=== PATIENT | male | born 1975 | race Caucasian/White ===

== ENCOUNTER 2020-11-27 13:02 | Inpatient (IN) | payer BC ==
[~2020-11-27] VITALS: Ht 177.8 cm; Wt 98.1 kg
[~2020-11-27 13:02] MED LIST: ADENOSINE 6 MG/2 ML ONE
[2020-11-27] MEDS ORDERED: TICAGRELOR 90 MG TABLET ONE ×3 (13:07→14:06)
[2020-11-27] MEDS ORDERED: VERAPAMIL 2.5 MG/ML, 2ML ONE (13:07)
[2020-11-27] MEDS ORDERED: LIDOCAINE 1%, 20ML ONE (13:07)
[2020-11-27] MEDS ORDERED: MIDAZOLAM 1 MG/ML, 5ML ONE (13:07)
[2020-11-27] MEDS ORDERED: FENTANYL PF 100 MCG/2ML ONE (13:07)
[2020-11-27] MEDS ORDERED: ASPIRIN 325 MG TABLET PO STA (13:11)
[2020-11-27 13:18] LABS: MEAN CORPUSCULAR HEMOGLOBIN 32.6 pg (27.5-34.5); MEAN CORPUSCULAR HGB CONC 34.6 g/dL (33.2-36.2); MEAN PLATELET VOLUME 9.6 fL (7.4-10.4); PLATELET COUNT 261 x10^3/uL (130-400); RED BLOOD COUNT 5.92 x10^6/uL (4.38-5.82); RED CELL DISTRIBUTION WIDTH 13.4 % (9.4-14.8)
--- NOTE | 2020-11-27 13:28 | NUR ---
PT FLOWN IN FROM [place]. CODE CARDIAC. PT REPORTS HAVING CRUSHING CP AT AROUND 1045 TODAY AND WENT TO ER. WAS FOUND TO BE HAVING A STEMI. 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 PT WAS ALSO ON A NITRO DRIP AT 5MCG/MIN UPON ARRIVAL. PT IMMEDIATLEY TAKEN TO PICTURE PAINTER UPON ARRIVAL.
[2020-11-27] MEDS ORDERED: NITROGLYCERIN 0.4 MG BOTTLE (25 TABS) SL PRN (13:30)
[2020-11-27] MEDS: LISINOPRIL 5 MG TABLET PO SCH ×2 (13:30→20:56)
[2020-11-27] MEDS ORDERED: ALUMINUM/MAG/SIMETHICONE 30 ML UDC PO PRN (13:30)
[2020-11-27] MEDS ORDERED: NITROGLYCERIN 0.4 MG/SPRAY SL PRN (13:30)
[2020-11-27 13:32] LABS: INTERNATIONAL NORMALIZED RATIO 1.05 (0.93-1.1); PROTHROMBIN TIME 11.2 Seconds (9.6-11.5)
[2020-11-27] MEDS ORDERED: TIROFIBAN HCL MONOHYDRATE 15 ML ONE (13:41)
[2020-11-27 13:50] LABS: PARTIAL THROMBOPLASTIN TIME < 23 Seconds (25-31)
[2020-11-27] MEDS ORDERED: POTASSIUM CHLORIDE 20 MEQ TAB.ER.PRT PO ONE (14:00)
[2020-11-27 14:02] LABS: CHOL/HDL RATIO 4.3; LDL/HDL RATIO 2.6 (0.5-3.0)
[2020-11-27] MEDS ORDERED: BIVALIRUDIN 250 MG ONE (14:14)
[2020-11-27 14:26] LABS: <PLATELET ESTIMATE> ADEQUATE; <PLT MORPHOLOGY> NORMAL PLT MORPH; <RBC MORPHOLOGY> NORMAL; BAND#(MANUAL) 2.43 x10^3/uL; BANDS%(MANUAL) 10 % (0-7); EOS#(MANUAL) 0.24 x10^3/uL (0.0-0.4); EOS% (MANUAL) 1 % (1-7); LYMPH#(MANUAL) 2.43 x10^3/uL (1-3.4); LYMPHS% (MANUAL) 10 % (22-44); MONOS#(MANUAL) 0.73 x10^3/uL (0.3-2.7); MONOS% (MANUAL) 3 % (2-9); SEG#(MANUAL) 18.47 x10^3/uL (1.8-6.8); SEGS% (MANUAL) 76 % (42-75)
[2020-11-27] MEDS: SODIUM CHLORIDE 0.9% 1,000 ML IV SCH ×2 (14:30→22:34)
[2020-11-27] MEDS ORDERED: BIVALIRUDIN 250 MG in SODIUM CHLORIDE 0.9% 50 ML IV SCH (14:30)
[2020-11-27] MEDS ORDERED: AMIODARONE 150 MG in DEXTROSE 5% 100 ML IV ONE ×2 (15:00→15:30)
[2020-11-27] MEDS ORDERED: FILTER 0.22 MICRON FOR AMIODARONE IV PRN (15:30)
[2020-11-27] MEDS: AMIODARONE 450 MG in DEXTROSE 5% 241 ML IV PRN (15:58)
[2020-11-27] MEDS: ONDANSETRON 2MG/ML, 2ML IVPush PRN (15:59)
[2020-11-27 16:01] LABS: CHOL/HDL RATIO 4.6; LDL/HDL RATIO 2.8 (0.5-3.0)
[2020-11-27] MEDS ORDERED: FUROSEMIDE 20 MG/2 ML IV ONE (17:00)
[2020-11-27] MEDS ORDERED: HEPARIN PROTOCOL IIB/IIIA POST-LYTIC MC PRN (17:00)
[2020-11-27] MEDS ORDERED: INSTRUCTION SEE COMMENTS XX ONE (17:10)
[2020-11-27] MEDS ORDERED: HEPARIN 25,000 UNITS/250ML PMX 250 ML IV PRN (17:30)
[2020-11-27] MEDS ORDERED: HEPARIN 5,000 UNITS/ML, 1ML IV PRN (17:30)
[2020-11-27] MEDS: CARVEDILOL 3.125 MG TABLET PO SCH (17:33)
[2020-11-27 20:10] LABS: TROPONIN I > 200.000 ng/mL (0.000-0.045)
[2020-11-27] MEDS: TICAGRELOR 90 MG TABLET PO SCH (20:56)
[2020-11-27] MEDS: ATORVASTATIN 80 MG TABLET PO SCH (20:56)
[2020-11-27] MEDS: ACETAMINOPHEN 325 MG TABLET PO PRN (20:57)
[2020-11-28 01:46] LABS: BASOPHILS % (AUTO) 0 % (0-1); EOSINOPHILS % (AUTO) 0 % (1-7); LYMPHOCYTES % (AUTO) 6 % (22-44); MEAN CORPUSCULAR HEMOGLOBIN 32.5 pg (27.5-34.5); MEAN CORPUSCULAR HGB CONC 34.2 g/dL (33.2-36.2); MEAN PLATELET VOLUME 9.4 fL (7.4-10.4); MONOCYTES % (AUTO) 9 % (2-9); NEUTROPHILS % (AUTO) 85 % (42-75); PLATELET COUNT 205 x10^3/uL (130-400); RED BLOOD COUNT 5.46 x10^6/uL (4.38-5.82); RED CELL DISTRIBUTION WIDTH 13.4 % (9.4-14.8)
[2020-11-28 01:58] LABS: ALANINE AMINOTRANSFERASE 172 U/L (12-78); ALBUMIN 3.7 g/dL (3.4-5.0); ANION GAP 8 mmol/L (5-15); CALCIUM 8.1 mg/dL (8.5-10.1); CHLORIDE 108 mmol/L (98-107); CREATININE 1.35 mg/dL (0.7-1.3)
[2020-11-28 02:01] LABS: ALKALINE PHOSPHATASE 27 U/L (45-117); BILIRUBIN,TOTAL 1.8 mg/dL (0.2-1.0); TOTAL PROTEIN 7.3 g/dL (6.4-8.2)
[2020-11-28] MEDS: AMIODARONE 450 MG in DEXTROSE 5% 241 ML IV PRN (02:37)
[2020-11-28 02:46] LABS: TROPONIN I > 200.000 ng/mL (0.000-0.045)
[2020-11-28] MEDS: SODIUM CHLORIDE 0.9% 1,000 ML IV SCH (06:00)
[2020-11-28] MEDS: CARVEDILOL 3.125 MG TABLET PO SCH ×2 (06:00→18:28)
[2020-11-28] MEDS: TICAGRELOR 90 MG TABLET PO SCH ×2 (08:30→22:17)
[2020-11-28] MEDS: LISINOPRIL 5 MG TABLET PO SCH ×3 (08:30→22:19)
[2020-11-28] MEDS: ASPIRIN 81 MG TABLET EC PO SCH (08:30)
[2020-11-28] MEDS ORDERED: FUROSEMIDE 20 MG/2 ML IV ONE (09:30)
[2020-11-28] MEDS: COLCHICINE 0.6 MG CAPSULE PO SCH ×2 (09:37→22:09)
[2020-11-28] MEDS: SPIRONOLACTONE 25 MG TABLET PO SCH (09:37)
[2020-11-28 15:30] VITALS: BP 171/91
[2020-11-28] MEDS: ACETAMINOPHEN 325 MG TABLET PO PRN ×2 (16:40→22:16)
[2020-11-28 18:20] VITALS: BP 121/81
[2020-11-28 22:11] VITALS: BP 96/66
[2020-11-28 22:13] VITALS: BP 96/63
[2020-11-28] MEDS: ATORVASTATIN 80 MG TABLET PO SCH (22:17)
[2020-11-29] VITALS (9 sets, daily range): BP systolic 90–113; BP diastolic 52–79
[2020-11-29] MEDS: ONDANSETRON 2MG/ML, 2ML IVPush PRN (03:36)
[2020-11-29] MEDS: HYDROcodone/APAP 5/325 TABLET PO PRN (03:37)
[2020-11-29 06:02] LABS: BASOPHILS % (AUTO) 0 % (0-1); EOSINOPHILS % (AUTO) 0 % (1-7); LYMPHOCYTES % (AUTO) 7 % (22-44); MEAN CORPUSCULAR HEMOGLOBIN 32.8 pg (27.5-34.5); MEAN CORPUSCULAR HGB CONC 34.8 g/dL (33.2-36.2); MEAN PLATELET VOLUME 9.8 fL (7.4-10.4); MONOCYTES % (AUTO) 11 % (2-9); NEUTROPHILS % (AUTO) 82 % (42-75); PLATELET COUNT 197 x10^3/uL (130-400); RED BLOOD COUNT 5.33 x10^6/uL (4.38-5.82); RED CELL DISTRIBUTION WIDTH 13.4 % (9.4-14.8)
[2020-11-29 06:10] LABS: CHLORIDE 105 mmol/L (98-107)
[2020-11-29 06:19] LABS: ALANINE AMINOTRANSFERASE 131 U/L (12-78); ALBUMIN 3.3 g/dL (3.4-5.0); ALKALINE PHOSPHATASE 31 U/L (45-117); ANION GAP 7 mmol/L (5-15); BILIRUBIN,TOTAL 2.1 mg/dL (0.2-1.0); CALCIUM 8.4 mg/dL (8.5-10.1); CREATININE 1.35 mg/dL (0.7-1.3)
[2020-11-29] MEDS: CARVEDILOL 3.125 MG TABLET PO SCH (06:29)
[2020-11-29] MEDS: ASPIRIN 81 MG TABLET EC PO SCH (09:57)
[2020-11-29] MEDS: TICAGRELOR 90 MG TABLET PO SCH ×2 (09:57→22:48)
[2020-11-29] MEDS: COLCHICINE 0.6 MG CAPSULE PO SCH ×2 (09:57→22:48)
[2020-11-29] MEDS: LISINOPRIL 5 MG TABLET PO SCH ×2 (09:58→21:00)
[2020-11-29] MEDS: SPIRONOLACTONE 25 MG TABLET PO SCH (09:58)
[2020-11-29] MEDS ORDERED: FUROSEMIDE 20 MG TABLET PO ONE (11:30)
[2020-11-29] MEDS: LIDODERM 5% PATCH TD SCH (12:05)
[2020-11-29] MEDS: CARVEDILOL 6.25 MG TABLET PO SCH (17:44)
[2020-11-29] MEDS: ACETAMINOPHEN 325 MG TABLET PO PRN ×2 (18:32→22:48)
[2020-11-29] MEDS: ATORVASTATIN 80 MG TABLET PO SCH (22:48)
[2020-11-30 00:38] VITALS: BP 105/74
[2020-11-30] MEDS: ONDANSETRON 2MG/ML, 2ML IVPush PRN ×2 (00:57→17:03)
[2020-11-30] MEDS: HYDROcodone/APAP 5/325 TABLET PO PRN (00:57)
[2020-11-30 05:18] LABS: BASOPHILS % (AUTO) 0 % (0-1); EOSINOPHILS % (AUTO) 0 % (1-7); LYMPHOCYTES % (AUTO) 10 % (22-44); MEAN CORPUSCULAR HEMOGLOBIN 32.8 pg (27.5-34.5); MEAN CORPUSCULAR HGB CONC 34.4 g/dL (33.2-36.2); MEAN PLATELET VOLUME 9.7 fL (7.4-10.4); MONOCYTES % (AUTO) 12 % (2-9); NEUTROPHILS % (AUTO) 77 % (42-75); PLATELET COUNT 211 x10^3/uL (130-400); RED BLOOD COUNT 5.19 x10^6/uL (4.38-5.82); RED CELL DISTRIBUTION WIDTH 13.4 % (9.4-14.8)
[2020-11-30 05:24] LABS: ALBUMIN 3.3 g/dL (3.4-5.0); ANION GAP 6 mmol/L (5-15); CALCIUM 8.9 mg/dL (8.5-10.1); CHLORIDE 99 mmol/L (98-107)
[2020-11-30 05:31] LABS: ALANINE AMINOTRANSFERASE 108 U/L (12-78); ALKALINE PHOSPHATASE 35 U/L (45-117); CREATININE 1.54 mg/dL (0.7-1.3); TOTAL PROTEIN 7.5 g/dL (6.4-8.2)
[2020-11-30 06:24] VITALS: BP 120/82
[2020-11-30] MEDS: CARVEDILOL 6.25 MG TABLET PO SCH ×2 (06:25→17:03)
[2020-11-30] MEDS: SPIRONOLACTONE 25 MG TABLET PO SCH (08:01)
[2020-11-30] MEDS: COLCHICINE 0.6 MG CAPSULE PO SCH (08:01)
[2020-11-30] MEDS: TICAGRELOR 90 MG TABLET PO SCH ×2 (08:01→20:32)
[2020-11-30] MEDS: ASPIRIN 81 MG TABLET EC PO SCH (08:01)
[2020-11-30] MEDS: LISINOPRIL 5 MG TABLET PO SCH ×2 (08:01→20:33)
[2020-11-30] MEDS: ACETAMINOPHEN 325 MG TABLET PO PRN (08:01)
[2020-11-30 08:37] VITALS: BP 117/73
[2020-11-30] MEDS: LIDODERM 5% PATCH TD SCH ×2 (12:00→17:03)
[2020-11-30] MEDS ORDERED: FUROSEMIDE 20 MG/2 ML IV ONE (13:30)
[2020-11-30] MEDS ORDERED: POTASSIUM CHLORIDE 20 MEQ TAB.ER.PRT PO ONE (14:00)
[2020-11-30 14:30] VITALS: BP 98/63
[2020-11-30 20:33] VITALS: BP 103/73
[2020-11-30] MEDS: ATORVASTATIN 80 MG TABLET PO SCH (20:33)
[2020-12-01 01:00] VITALS: BP 107/65
[2020-12-01] MEDS: ACETAMINOPHEN 325 MG TABLET PO PRN ×2 (02:46→17:59)
[2020-12-01 05:07] LABS: BASOPHILS % (AUTO) 0 % (0-1); EOSINOPHILS % (AUTO) 0 % (1-7); LYMPHOCYTES % (AUTO) 9 % (22-44); MEAN CORPUSCULAR HEMOGLOBIN 32.9 pg (27.5-34.5); MEAN PLATELET VOLUME 10.2 fL (7.4-10.4); MONOCYTES % (AUTO) 14 % (2-9); NEUTROPHILS % (AUTO) 76 % (42-75); PLATELET COUNT 225 x10^3/uL (130-400); RED BLOOD COUNT 4.98 x10^6/uL (4.38-5.82); RED CELL DISTRIBUTION WIDTH 13.5 % (9.4-14.8)
[2020-12-01 05:19] LABS: ANION GAP 8 mmol/L (5-15); CALCIUM 8.6 mg/dL (8.5-10.1); CHLORIDE 104 mmol/L (98-107)
[2020-12-01 05:22] LABS: ALANINE AMINOTRANSFERASE 71 U/L (12-78); ALKALINE PHOSPHATASE 39 U/L (45-117); CREATININE 1.35 mg/dL (0.7-1.3)
[2020-12-01] MEDS: CARVEDILOL 6.25 MG TABLET PO SCH ×2 (06:38→17:59)
[2020-12-01 07:49] VITALS: BP 102/78
[2020-12-01] MEDS: SPIRONOLACTONE 25 MG TABLET PO SCH (08:04)
[2020-12-01] MEDS: LISINOPRIL 5 MG TABLET PO SCH ×2 (08:04→20:35)
[2020-12-01] MEDS: TICAGRELOR 90 MG TABLET PO SCH ×2 (08:04→20:35)
[2020-12-01] MEDS: FUROSEMIDE 20 MG TABLET PO SCH (08:04)
[2020-12-01] MEDS: ASPIRIN 81 MG TABLET EC PO SCH (08:04)
[2020-12-01 13:04] VITALS: BP 125/77
[2020-12-01] MEDS: LIDODERM 5% PATCH TD SCH (17:02)
[2020-12-01 19:49] VITALS: BP 100/64
[2020-12-01] MEDS: ATORVASTATIN 80 MG TABLET PO SCH (20:35)
[2020-12-02 00:39] VITALS: BP 99/65
[2020-12-02] MEDS: ACETAMINOPHEN 325 MG TABLET PO PRN ×2 (00:48→18:17)
[2020-12-02] MEDS: LIDODERM 5% PATCH TD SCH (00:48)
[2020-12-02 06:04] VITALS: BP 96/64
[2020-12-02 07:19] VITALS: BP 107/75
[2020-12-02] MEDS: LISINOPRIL 5 MG TABLET PO SCH ×2 (08:07→20:25)
[2020-12-02] MEDS: FUROSEMIDE 20 MG TABLET PO SCH (08:07)
[2020-12-02] MEDS: ASPIRIN 81 MG TABLET EC PO SCH (08:07)
[2020-12-02] MEDS: TICAGRELOR 90 MG TABLET PO SCH ×2 (08:07→20:25)
[2020-12-02] MEDS: SPIRONOLACTONE 25 MG TABLET PO SCH (08:07)
[2020-12-02] MEDS: CARVEDILOL 6.25 MG TABLET PO SCH ×2 (08:07→18:17)
[2020-12-02 11:54] LABS: BASOPHILS % (AUTO) 1 % (0-1); EOSINOPHILS % (AUTO) 1 % (1-7); LYMPHOCYTES % (AUTO) 14 % (22-44); MEAN CORPUSCULAR HGB CONC 34.7 g/dL (33.2-36.2); MEAN PLATELET VOLUME 9.7 fL (7.4-10.4); MONOCYTES % (AUTO) 18 % (2-9); NEUTROPHILS % (AUTO) 67 % (42-75); PLATELET COUNT 279 x10^3/uL (130-400); RED BLOOD COUNT 5.14 x10^6/uL (4.38-5.82); RED CELL DISTRIBUTION WIDTH 13.2 % (9.4-14.8)
[2020-12-02] MEDS ORDERED: METHOCARBAMOL 750 MG TABLET PO PRN (12:00)
[2020-12-02 12:05] LABS: ALANINE AMINOTRANSFERASE 65 U/L (12-78); ANION GAP 8 mmol/L (5-15); CALCIUM 9.5 mg/dL (8.5-10.1); CHLORIDE 104 mmol/L (98-107); CREATININE 1.69 mg/dL (0.7-1.3)
[2020-12-02 12:07] LABS: ALKALINE PHOSPHATASE 61 U/L (45-117); BILIRUBIN,TOTAL 1.4 mg/dL (0.2-1.0); TOTAL PROTEIN 7.6 g/dL (6.4-8.2)
[2020-12-02 13:57] VITALS: BP 101/67
[2020-12-02 19:19] VITALS: BP 97/61
[2020-12-02] MEDS: ATORVASTATIN 80 MG TABLET PO SCH (20:25)
[2020-12-03] MEDS: LIDODERM 5% PATCH TD SCH (00:45)
[2020-12-03 01:19] VITALS: BP 102/70
[2020-12-03 05:42] LABS: BASOPHILS % (AUTO) 1 % (0-1); EOSINOPHILS % (AUTO) 2 % (1-7); LYMPHOCYTES % (AUTO) 17 % (22-44); MEAN CORPUSCULAR HGB CONC 34.5 g/dL (33.2-36.2); MEAN PLATELET VOLUME 9.5 fL (7.4-10.4); MONOCYTES % (AUTO) 13 % (2-9); NEUTROPHILS % (AUTO) 67 % (42-75); PLATELET COUNT 262 x10^3/uL (130-400); RED BLOOD COUNT 5.05 x10^6/uL (4.38-5.82); RED CELL DISTRIBUTION WIDTH 13.1 % (9.4-14.8)
[2020-12-03 05:51] LABS: CHLORIDE 105 mmol/L (98-107)
[2020-12-03 05:55] LABS: ANION GAP 7 mmol/L (5-15); CALCIUM 8.9 mg/dL (8.5-10.1); CREATININE 1.51 mg/dL (0.7-1.3)
[2020-12-03] MEDS: CARVEDILOL 6.25 MG TABLET PO SCH (06:14)
[2020-12-03 07:17] VITALS: BP 107/70
[2020-12-03] MEDS: FUROSEMIDE 20 MG TABLET PO SCH (07:47)
[2020-12-03] MEDS: SPIRONOLACTONE 25 MG TABLET PO SCH (07:47)
[2020-12-03] MEDS: ASPIRIN 81 MG TABLET EC PO SCH (07:47)
[2020-12-03] MEDS: TICAGRELOR 90 MG TABLET PO SCH (07:48)
[2020-12-03] MEDS: LISINOPRIL 5 MG TABLET PO SCH (07:48)
[2020-12-03] MEDS ORDERED: SPIR25TA PO (08:43)
[2020-12-03] MEDS ORDERED: CARV6.2512 PO (08:43)
[2020-12-03] MEDS ORDERED: ASPI81TA45 PO (08:43)
[2020-12-03] MEDS ORDERED: LISI5TAB7 PO (08:43)
[2020-12-03] MEDS ORDERED: TICA90TA PO (08:43)
[2020-12-03] MEDS ORDERED: FURO20TA3 PO (08:43)
[2020-12-03] MEDS ORDERED: ATOR-2 PO (08:43)
[2020-12-03] MEDS ORDERED: LIDO700A20 TD (08:43)
== END 2020-12-03 10:20 | disposition home or self-care (01) | DRG 246 ==
LOC: ED 13:44 → CCU 14:29 → 5SO 11-28 12:00 → DCLOUNGE 12-03 10:10
PROVIDERS: ADMIT Internal Medicine Cardiovascular Disease; ATTEND Internal Medicine Cardiovascular Disease
PROC: 027034Z Dilation of Coronary Artery, One Artery with Drug-eluting Intraluminal Device, Percutaneous Approach (ICD-10-PCS; principal; 2020-11-27)
PROC: 02C03ZZ Extirpation of Matter from Coronary Artery, One Artery, Percutaneous Approach (ICD-10-PCS; 2020-11-27)
PROC: 4A023N7 Measurement of Cardiac Sampling and Pressure, Left Heart, Percutaneous Approach (ICD-10-PCS; 2020-11-27)
PROC: B2111ZZ Fluoroscopy of Multiple Coronary Arteries using Low Osmolar Contrast (ICD-10-PCS; 2020-11-27)
PROC: B2151ZZ Fluoroscopy of Left Heart using Low Osmolar Contrast (ICD-10-PCS; 2020-11-27)
DX: I21.09 ST elevation (STEMI) myocardial infarction involving other coronary artery of anterior wall (principal); I50.43 Acute on chronic combined systolic (congestive) and diastolic (congestive) heart failure; D68.69 Other thrombophilia; I31.9 Disease of pericardium, unspecified; D72.829 Elevated white blood cell count, unspecified; E78.5 Hyperlipidemia, unspecified; I11.0 Hypertensive heart disease with heart failure; I25.5 Ischemic cardiomyopathy; I48.0 Paroxysmal atrial fibrillation; K76.0 Fatty (change of) liver, not elsewhere classified; K80.20 Calculus of gallbladder without cholecystitis without obstruction; M25.512 Pain in left shoulder; R74.01 Elevation of levels of liver transaminase levels; N28.9 Disorder of kidney and ureter, unspecified; Z80.3 Family history of malignant neoplasm of breast
CPT/HCPCS: 36415; 73030; 84145; 92973; 99291; C8929; J3490; 71045; 71046; 76700; 80047; 80048; 80053; 80061; 83735; 83880; 84484; 85025; 85520; 85610; 85730; 87081; 93005; 93308; 93321; 93325; 99156; 99157; C1769; C1894; G0378; J0153; J0583; J1644; J2250; J2405; J3010; J7060; Q9957; C1725; C1757; C1874; C1887; J0282; J1940; J3246; Q9967

== ENCOUNTER 2021-03-10 13:45 | Outpatient (CLI) | payer BC ==
[~2021-03-10 13:45] MED LIST changes: -ADENOSINE 6 MG/2 ML ONE; +ASPI81TA45 PO; +ATOR-2 PO; +CARV6.2512 PO; +FURO20TA3 PO; +LIDO700A20 TD; +LISI5TAB7 PO; +SPIR25TA PO; +TICA90TA PO
== END 2021-03-10 23:59 | disposition home or self-care (01) ==
LOC: CFH 13:45
PROVIDERS: ATTEND Internal Medicine Clinical Cardiac Electrophysiology
DX: I08.8 Other rheumatic multiple valve diseases (principal); I50.41 Acute combined systolic (congestive) and diastolic (congestive) heart failure; I21.09 ST elevation (STEMI) myocardial infarction involving other coronary artery of anterior wall
CPT/HCPCS: 93306; 93356